=== PATIENT | female | born 1970 | race Two or more races ===

== ENCOUNTER → 2024-03-13 | Emergency (ER) | payer OTHER ==
[~2024-03-13] VITALS: Ht 160 cm; Wt 54.9 kg
[~2024-03-13] MED LIST: AZITHROMYCIN250 MG PO; CEFTRIAXONE SODIUM 1,000 MG VIAL IM ONE; GUAIFENESIN 200 MG/10 ML BLIST.PACK PO ONE; LEVOTHYROXINE25 MCG PO; MEDROLPACK PO; METHYLPREDNISOLONE SOD SUCC 40 MG VIAL IM ONE; MONTELUKAST SODI4 M1 PO; MONTELUKAST SODIUM 10 MG TABLET PO ONE; PEPCID AC20 MG PO
[2024-03-13 08:55] LABS: HEMATOCRIT 38.9 % (36.0-45.00); HEMOGLOBIN 13.6 g/dL (12.0-15.00); MEAN CELL VOLUME 91.9 fL (80.00-100.00); MEAN CORPUSCULAR HGB CONC 34.8 g/dl (32.0-36.0); PLATELET COUNT 166 K/uL (150-450); RED BLOOD COUNT 4.24 M/uL (4.00-6.00); RED CELL DISTRIBUTION WIDTH 13.5 % (11.5-14.5)
== END | disposition home or self-care (01) ==
LOC: ER 06:23
PROVIDERS: General Practice
DX: R53.81 Other malaise (principal); J00 Acute nasopharyngitis [common cold]; Z20.822 Contact with and (suspected) exposure to COVID-19; E03.8 Other specified hypothyroidism
CPT/HCPCS: 36415; 96372; 99282; J0696; J3490